=== PATIENT | male | born 1940 | race Caucasian/White ===

== ENCOUNTER 2024-06-24 14:07 | Emergency (ER) | payer OTHER, BC ==
[2024-06-24 14:32] VITALS: BP 136/89; PULSE 83; RESP 18; TEMP 98.8; BMI 36.3
[2024-06-24] MEDS ORDERED: ALBUTEROL SO4 2.5/IPRATROPIUM 0.5 INH SOL 3 ML VIAL.NEB. NEB ONE (14:47)
[2024-06-24] MEDS ORDERED: predniSONE 20 MG TABLET (UD) ONE (14:47)
[2024-06-24] MEDS: ALBUTEROL SO4 2.5/IPRATROPIUM 0.5 INH SOL 3 ML VIAL.NEB. NEB ONE (14:52)
[2024-06-24] MEDS: predniSONE 20 MG TABLET (UD) PO ONE (14:52)
[2024-06-24] MEDS ORDERED: guaiFENesin 200 MG/10 ML 10 ML UNIT-DOSE CUPS ONE (16:19)
[2024-06-24] MEDS: guaiFENesin 200 MG/10 ML 10 ML UNIT-DOSE CUPS PO ONE (16:21)
== END 2024-06-24 16:24 | disposition home or self-care (01) ==
LOC: FER 14:07
PROC: 3E0F7GC Introduction of Other Therapeutic Substance into Respiratory Tract, Via Natural or Artificial Opening (ICD-10-PCS; principal; 2024-06-24)
DX: R06.02 Shortness of breath (principal); R05.9 Cough, unspecified; R09.81 Nasal congestion; B34.9 Viral infection, unspecified; J45.909 Unspecified asthma, uncomplicated
CPT/HCPCS: 71046-TC-FY; 99284-25